=== PATIENT | male | born 1960 ===

== ENCOUNTER 2023-08-21 09:25 | Day surgery (SDC) | payer OTHER ==
[~2023-08-21] VITALS: Ht 165.1 cm; Wt 77.1 kg
[2023-08-21] MEDS ORDERED: fentaNYL citrate 0.05 MG/ML VIAL ONE (10:30)
[2023-08-21] MEDS: fentaNYL citrate 0.05 MG/ML VIAL IVP ONE (10:50)
== END 2023-08-21 12:32 | disposition home or self-care (01) ==
LOC: MDS 09:25 → MMU 09:26 → MDS 12:32
PROVIDERS: ATTEND Internal Medicine Gastroenterology
DX: Z12.11 Encounter for screening for malignant neoplasm of colon (principal); K63.5 Polyp of colon; K57.30 Diverticulosis of large intestine without perforation or abscess without bleeding; I10 Essential (primary) hypertension; Z86.010 Personal history of colon polyps; E78.5 Hyperlipidemia, unspecified; E11.9 Type 2 diabetes mellitus without complications; Z79.899 Other long term (current) drug therapy
CPT/HCPCS: 45385; 82948; J3010